=== PATIENT | female | born 1975 | race African-American/Black ===

== ENCOUNTER 2016-12-20 19:28 | Emergency (ER) | payer BC, OTHER ==
--- NOTE | ~2016-12-20 | CR72 ---
[facility] A Service of [facility] RADIOLOGY TEXT RESULTS PATIENT: ABDULAZIZ POLLARD LOCATION: [place] : 73 UNIT #: [id number] AGE: [address]: Baljit Nayak MD SEX: F ORDER DR: [id number] [facility] [address] [place], [place] [address] [id number] E MR#: [id number] Acc #: [id number] NAME: ABDULAZIZ POLLARD : 1975 SEX: F STUDY DATE/TIME: 12/20/2016 18:39 UNIT: [facility] ROOM: STUDY DESCRIPTION: CR Chest Single View Portable Attending Physician: Jose D Nayak M.D. Ordering Physician: Ed Doctor [id number] [facility] Primary Care Physician: Madi Lewis M.D. MEDICAL IMAGING REPORT This report is preliminary unless electronic signature is present EXAM Portable chest, 12/20/16 HISTORY Left side weakness with facial drooping and shortness of air with activities that started today. TECHNIQUE AP portable chest was obtained. No comparison. FINDINGS The heart is enlarged. Interstitial opacities bilaterally may reflect mild pneumonitis or edema. No pneumothorax is seen. IMPRESSION Cardiomegaly with a relatively low volume inspiration. There is interstitial opacity bilaterally which could reflect very early edema or mild pneumonitis. Consider upright PA and lateral views of the chest when clinically feasible. Dictated by... Felix Carolina Jr., M.D. THIS IS AN ELECTRONICALLY VERIFIED REPORT Felix Carolina Jr., M.D. at 12/20/2016 10:27 PM RUCHI/kobe TD: 12/20/2016 21:13 JOB #: [id number] [facility] A Service [facility] RADIOLOGY TEXT RESULTS PATIENT: ABDULAZIZ POLLARD LOCATION: [facility] : 73 UNIT #: [id number] AGE: [address]: Baljit Nayak MD SEX: F ORDER DR: MEDICAL IMAGING REPORT Page 1 of 1 COPY
--- NOTE | ~2016-12-20 | CT71 ---
[facility] A Service of [facility] RADIOLOGY TEXT RESULTS PATIENT: ABDULAZIZ POLLARD LOCATION: [facility] : [birth year] UNIT #: [id number] AGE: [address]: Baljit Nayak MD SEX: F ORDER DR: [id number] [facility] [address] [place], [place] [address] [id number] E MR#: [id number] Acc #: [id number] NAME: ABDULAZIZ POLLARD : 1975 SEX: F STUDY DATE/TIME: 12/20/2016 18:58 UNIT: [facility] ROOM: STUDY DESCRIPTION: CT Head Wo Contrast Attending Physician: Jose D Nayak M.D. Ordering Physician: Otf Nsah M.D. Primary Care Physician: Madi Lewis M.D. MEDICAL IMAGING REPORT This report is preliminary unless electronic signature is present EXAM CT brain without contrast HISTORY Left side facial droop today. FINDINGS This CT exam was performed with one or more of the following radiation dose reduction techniques: Automatic exposure control, adjustment of mA and/or kV according to patient size, and iterative reconstruction. CT brain without contrast is partly limited by motion. Linear hyperdensity along the right M1 segment corresponds to the area of severe narrowing on CT angiogram brain earlier today, concerning for thrombus within the right M1. This measures less than 1 cm in length. No intracranial hemorrhage, mass or edema is identified. No midline shift or extraaxial fluid collection. IMPRESSION 1. No intracranial hemorrhages is identified. 2. Short-segment linear hyperdensity within the right M1 segment corresponds to the area of severe right M1 stenosis on CT angiogram earlier today and is concerning for M1 thrombus extending over a length of less than 1 cm. 3. No intracranial edema or sulcal effacement is identified but sensitivity is partly limited by motion. Dictated by... Genaro Bella M.D. THIS IS AN ELECTRONICALLY VERIFIED REPORT Genaro Bella M.D. at 12/21/2016 2:43 PM [facility] A Service of [facility] RADIOLOGY TEXT RESULTS PATIENT: ABDULAZIZ POLLARD LOCATION: [facility] : 73 UNIT #: [id number] AGE: [address]: Baljit Nayak MD SEX: F ORDER DR: Frances TD: 12/20/2016 21:32 JOB #: [id number] MEDICAL IMAGING REPORT Page 1 of 1 COPY
--- NOTE | ~2016-12-20 | CT71 ---
[facility] A Service of [facility] RADIOLOGY TEXT RESULTS PATIENT: ABDULAZIZ POLLARD LOCATION: [facility] : 73 UNIT #: [id number] AGE: [address]: Baljit Nayak MD SEX: F ORDER DR: [id number] [facility] [address] [place], [place] [address] [id number] E MR#: [id number] Acc #: [id number] NAME: ABDULAZIZ POLLARD : 1975 SEX: F STUDY DATE/TIME: 12/20/2016 17:17 UNIT: [facility] ROOM: STUDY DESCRIPTION: CT Head Wo Contrast Attending Physician: Jose D Nayak M.D. Ordering Physician: Otf Nash M.D. Primary Care Physician: Madi Lewis M.D. MEDICAL IMAGING REPORT This report is preliminary unless electronic signature is present EXAM CT head without contrast, 12/20/16 HISTORY Left side facial drooping that started today about 4:25 p.m. TECHNIQUE Axial images were obtained from the base of the vertex without contrast. This CT exam was performed with one or more of the following radiation dose reduction techniques: automatic exposure control, adjustment of mA and/or kV according to patient size, and iterative reconstruction. COMPARISON STUDIES 10/09/07. FINDINGS Ventricular size and configuration are within normal limits. There is no acute infarct or hemorrhage. There are no masses. No skull fractures. IMPRESSION Negative head CT. Dictated by... Felix Caroilna Jr., M.D. THIS IS AN ELECTRONICALLY VERIFIED REPORT Felix Carolina Jr., M.D. at 12/20/2016 10:25 PM RUCHI/kobe TD: 12/20/2016 20:30 JOB #: [id number] [facility] A Service of [facility] RADIOLOGY TEXT RESULTS PATIENT: ABDULAZIZ POLLARD LOCATION: [facility] : 73 UNIT #: [id number] AGE: [address]: Baljit Nayak MD SEX: F ORDER DR: MEDICAL IMAGING REPORT Page 1 of 1 COPY
--- NOTE | ~2016-12-20 | EKG ---
PATIENT: ABDULAZIZ POLLARD UNIT #: [id number] Ventricular Rate: 85 BPM Atrial Rate: 85 BPM P-R Interval: 146 ms QRS Duration: 78 ms Q-T Interval: 408 ms QTC Calculation(Bezet): 485 ms P Dumas: 62 degrees Calculated R Dumas: -14 degrees Calculated T Dumas: 41 degrees Diagnosis Line: Normal sinus rhythm Diagnosis Line: Prolonged QT Diagnosis Line: Abnormal ECG Diagnosis Line: No previous ECGs available Diagnosis Line: Confirmed by CHRISTELLE ALLEN MD ([id number]) on Diagnosis Line: 12/21/2016 4:36:02 PM INTERPRETING MD: ALEJANDRO BARBER
--- NOTE | ~2016-12-20 | CT18 ---
[facility] A Service of [facility] RADIOLOGY TEXT RESULTS PATIENT: ABDULAZIZ POLLARD LOCATION: [facility] : 73 UNIT #: [id number] AGE: [address]: Baljit Nayak MD SEX: F ORDER DR: [id number] [place] [id number] [place], [place] [address] [id number] P MR#: [id number] Acc #: [id number] NAME: ABDULAZIZ POLLARD : 1975 SEX: F STUDY DATE/TIME: 12/20/2016 17:26 UNIT: [facility] ROOM: STUDY DESCRIPTION: CT Angio Head Stroke Attending Physician: Baljit Nayak Ordering Physician: Otf Nash M.D. MEDICAL IMAGING REPORT This report is preliminary unless electronic signature is present EXAM IV contrast and CT angiogram head and neck HISTORY Left side facial droop today TECHNIQUE IV contrast and CT angiogram of the head and neck was performed with 3-D reconstructions. This CT exam was performed with one or more of the following radiation dose reduction techniques: automatic exposure control, adjustment of mA and/or kV according to patient size, and iterative reconstruction. FINDINGS CT angiogram neck: The common carotid arteries and carotid bulbs and cervical internal carotid arteries are widely patent bilaterally with no stenosis by NASCET criteria. Both vertebral arteries are patent, relatively hypoplastic on the right, with no focal stenosis identified. CT angiogram brain: There is a high-grade stenosis of the right M1, less than 1 cm from its origin, extending over a length of close to 8 mm, with near occlusion, and reconstitution of the distal right M1 segment and normal appearing M2 segments. Patent bilateral posterior communicating arteries with hypoplastic left P1 segment. Patent anterior communicating artery. The anterior cerebral, left middle cerebral and remainder of the posterior cerebral arteries are widely patent bilaterally. The intracranial vertebral arteries are patent, hypoplastic on the right and dominant on the left, and the vertebral artery is widely patent. No aneurysm or vascular malformation is identified. [facility] A Service of [facility] RADIOLOGY TEXT RESULTS PATIENT: ABDULAZIZ POLLARD LOCATION: [facility] : 73 UNIT #: [id number] AGE: [address]: Baljit Nayak MD SEX: F ORDER DR: IMPRESSION 1. There is a severe stenosis of the right M1 segment less than 1 cm from its origin and extending over a length of approximately 8 mm with near occlusion, and reconstitution and widely patent distal right M1 segment and normal-caliber right M2 segments. 2. No additional intracranial stenosis or major vessel occlusion. 3. Dominant left posterior communicating artery, predominately supplies the left P2 segment with hypoplastic left P1 segment. 4. 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 Both vertebral arteries are patent. 5. 0% stenosis in the cervical carotid arteries by NASCET criteria. STAT * RESULT Dictated by... Genaro Bella M.D. THIS IS AN ELECTRONICALLY VERIFIED REPORT Genaro Bella M.D. at 12/20/2016 8:06 PM DFL/to TD: 12/20/2016 18:58 JOB #: [id number] MEDICAL IMAGING REPORT Page 1 of 1 COPY
[2016-12-20 17:50] LABS: BASOPHIL# 0.1 X10e3 (0-0.3); BASOPHIL% 1.1 % (0-2.5); EOSINOPHIL# 0.1 X10e3 (0-0.7); EOSINOPHIL% 1.7 % (0.0-7.0); HEMATOCRIT 37.9 % (35.0-45.0); HEMOGLOBIN 12.6 gm/dL (12.0-16.0); LYMPHOCYTE# 2.3 X10e3 (1.0-3.5); LYMPHOCYTE% 28.2 % (17.0-45.0); MEAN CELL VOLUME 84.5 FL (83-96); MEAN CORPUSCULAR HEMOGLOBIN 28.1 PG (28-34); MEAN CORPUSCULAR HGB CONC 33.2 g/dL (30-36); MEAN PLATELET VOLUME 7.5 FL (6.5-11.5); MONOCYTE# 0.6 X10e3 (0-1.0); MONOCYTE% 7.2 % (3.0-12.0); NEUTROPHIL% 61.8 % (40-75); PLATELET COUNT 357 X10e3 (140-420); RED BLOOD COUNT 4.49 X10e (3.90-5.30); RED CELL DISTRIBUTION WIDTH 14.5 % (11.0-15.5)
[2016-12-20 17:51] LABS: DIFF IND NO
[2016-12-20 18:00] LABS: POC - CREATININE 0.75 mg/dL (0.44-1.03); POC - GFR >60.0 mL/min (>60)
[2016-12-20 18:03] LABS: INR 0.9; PARTIAL THROMBOPLASTIN TIME 25.8 SECONDS (23.5-31.3); PROTHROMBIN TIME (PATIENT) 9.7 SECONDS (9.6-11.5)
[2016-12-20 18:14] LABS: ALBUMIN SERUM 3.9 g/dL (3.5-5.0); BILIRUBIN, DIRECT 0.1 mg/dL (0.0-0.2); BILIRUBIN,INDIRECT 0.5 mg/dL (0.0-0.9); BILIRUBIN,TOTAL 0.6 mg/dL (0.2-2.0); CALCIUM SERUM 9.2 mg/dL (8.4-10.2); CREATININE SERUM 0.7 mg/dL (0.6-1.4); GLOM FILT RATE Estimated 106.9 mL/min (>60); POTASSIUM 3.9 mmol/L (3.5-5.1); PROTEIN TOTAL SERUM 7.2 g/dL (6.0-8.3)
[2016-12-20 18:38] LABS: POC - CKMB <1.0 ng/mL (0.0-7.9); POC - TROPONIN <0.05 ng/mL (<=0.05)
== END 2016-12-20 19:48 | disposition hospice, home (50) ==
LOC: CED 19:28
PROVIDERS: Emergency Medicine
DX: I63.9 Cerebral infarction, unspecified (principal); E78.5 Hyperlipidemia, unspecified; I10 Essential (primary) hypertension; E11.9 Type 2 diabetes mellitus without complications; Z88.8 Allergy status to other drugs, medicaments and biological substances
CPT/HCPCS: 36415; 51702; 70450; 70496; 70498; 71010; 80048; 80076; 82553; 82565; 82947; 84484; 85025; 85610; 85730; 93005; 99291; J2997; Q9967